=== PATIENT | female | born 1965 | race Asian ===

== ENCOUNTER 2017-09-07 08:06 | Emergency (ER) | payer BC ==
[2017-09-07 08:10] VITALS: TEMP 98.9
[2017-09-07 09:48] VITALS: BP 121/88
== END 2017-09-07 09:48 | disposition home or self-care (01) ==
LOC: ED 08:06
DX: M51.26 Other intervertebral disc displacement, lumbar region (principal)
CPT/HCPCS: 96372; 99283; J1885